=== PATIENT | female | born 1975 | race Asian ===

== ENCOUNTER 2024-11-26 23:14 | Inpatient (IN) | payer OTHER, SELFPAY ==
[2024-11-26] VITALS (31 sets, daily range): BP systolic 135–212; BP diastolic 71–126; PULSE 4–124; BMI 29.5
[2024-11-26 21:41] LABS: Hematocrit 37.1 % (37.0-47.0); Hemoglobin 12.6 g/dL (12.0-16.0); Mean Corp Hgb Conc. 34.0 g/dL (33.0-37.0); Mean Corpuscular Volume 87.7 fL (81.0-99.0); Nucleated Red Blood Cells % 0 %; Platelet Count 245 10^3/uL (130-400); Red Cell Dist. Width 13.7 % (11.5-14.5)
[2024-11-26] MEDS: NITROGLYCERIN PREMIX 250 IV (21:41)
--- NOTE | 2024-11-26 21:50 | ED.GENMED ---
History of Present Illness
General
Chief Complaint: Breathing Problem
Source: patient and family (translating...pt from [facility])
Time Seen by Provider: 11/26/24 21:39
History of Present Illness
History of Present Illness:
49-year-old female presents to the emergency room complaining of severe shortness of breath. Patient began feeling short of breath couple hours prior to arrival. It started with some nausea and vomiting. Patient has end-stage renal disease
related to diabetes. She receives dialysis Wednesday. Her last dialysis was yesterday. However the patient has been receiving dialysis in [place]. She moved here for the foreseeable future today. She has not set up any sort of
medical care or made any arrangements at a dialysis center. Patient has been taking her medications though she does not know what her medications are. She brought a box with tablets but not a list of medication. Family members will call home and
try to figure out her medication list. Patient also complaining of a headache.
Past History
Past History
ED Past Medical History: CAD, HTN, NIDDM and Renal failure
ED Past Surgical History: Cardiac (Bypass surgery performed in [place])
Social History
Tobacco: Non-smoker
Alcohol: None
Drug: None
Phy Exam
Physical Exam
Physical Exam:
General: Awake, Alert, Oriented X3. Moderate respiratory distress
Vitals: Hypoxic on room air, tachypneic, tachycardic, markedly hypertensive
Head: Atraumatic
Eyes: Pupils equal, EOMI
Throat: Airway intact, no exudates
Neck: Trachea midline
Lungs: Crackles bilaterally
Heart: Regular rate, no murmurs
Abd: Soft, Nontender, No pulsatile mass
Neuro: Nonfocal
Skin: Warm, dry, no rash
Extremities: pulses equal b/l, AV fistula noted left forearm
Scores
Heart Failure Risk
Heart Failure Risk Score: Yes
History of Stroke or TIA: No
History of intubation for respiratory distress: No
Heart rate on ED arrival >/= 110: Yes
SaO2 <90% on arrival on room air: Yes
HR >/=110 during 3min walk test (or too ill to perform test): Yes
ECG has acute ischemic changes: No
Urea >/=12mmol/L (BUN 33.6mg/dL): Yes
Serum CO2>/=35mmol/L: No
Troponin I or T elevated to MD Level (0.4mg/dL): No
NT-proBNP >/=5,000ng/L (5,000pg/ml): No
HF Risk Score: 4
Admission Status: HIGH RISK 26.1% Consider SNF treatment or admission to hospital
Course
Orders/Labs/Results
Orders:
Orders
11/26/24 21:21
Electrocardiogram (*1) Urgent
Reason for Study: Shortness of Breath
EKG- Treatment ONCE
11/26/24 21:27
Electrocardiogram (*1) Urgent
Reason for Study: Other
Other Reason for Exam: Respiratory Distress
Cardiac Monitoring- Treatment ONCE
EKG- Treatment ONCE
IV Insert/Care/Rem.- Treatment PRN
CR Chest Portable - 1 View Urgent
Comment:
Reason For Exam: respiratory distress
Reason Study Needs to be Portable: Patient Unstable
O2 Therapy [RESP] Urgent
Titrate/Wean O2 to maintain O2 sat greater than (%): 93
Special Instructions: TO MAINTAIN CONTINUOUS O2 SATS >/= 93%
Pulse Ox/cont/shift [RESP] Urgent
Quantity: 1
Special Instructions: continuous pulse ox
11/26/24 21:36
Complete Blood Count/With Diff Urgent
Comprehensive Metabolic Panel Urgent
Troponin I Urgent
11/26/24 21:37
Nitroglycerin 100 mg/250 ml [Nitroglycerin Premix] 100 mg in 250 ml .ROUTE .STK-MED
11/26/24 21:40
Nitroglycerin 100 mg/250 ml [Nitroglycerin Premix] 100 mg in 250 ml IV NOW
Initial dose in mcg/min, then titrate:: 100
Titrate to keep:: Other
Titrate to keep other:: SBP less than 140 mmHg
Titrate by mcg/min:: 20 mcg/min
Frequency of titrations (minutes):: every 1 minute (after initial bolus)
Additional Titration Instructions:: Bolus 400 mcg/min x 2 min. Decrease to 100 mcg/min & titrate
Maximum dose in mcg/min:: 200
Begin to taper infusion when:: Remained at goal for 2hrs
Taper by mcg/min:: 5 mcg/min
Frequency of taper (minutes) if patient maintains goal:: 30
Taper to off?: Yes
If infusion off & no longer maintaining goal:: Contact Provider
11/26/24 21:47
Venous Blood Gas Urgent
%Oxygen/Room Air: 77
11/26/24 21:59
Acetaminophen 1000MG/100Ml [Ofirmev] 1,000 mg in 100 ml IV ONCE
Acetaminophen IV Indication:: No OK & No Enteral Access
11/26/24 22:13
Calcium Gluconate 1,000 mg IV NOW STA
Dextrose 50%-Water [Dextrose 50% Syringe] 12.5 grams IV [id number] PRN
Dextrose 50%-Water [Dextrose 50% Syringe] 25 grams IV NOW STA
Insulin Human Regular [Novolin R] 10 units IV NOW STA
11/26/24 22:14
Bedside Glucose PRE IV Insulin- HyperK+ NOW
11/26/24 22:36
Furosemide [Lasix] 100 mg IV NOW STA
11/26/24 22:40
Ondansetron Injectable [Zofran] 4 mg .ROUTE .STK-MED ONE
11/26/24 22:43
Admit/Transfer Patient As Directed
Co-Sign Provider:
Level of Care: Inpatient admission
Assign to:: ICU
Physician / Group: Fausto
Diagnosis: Hypoxia; Pulmonary Edema
Reason for Hospitalization: BIPAP
Expected length of stay greater than two midnights?: Yes
ELOS- Estimated Length of Stay in days: 3
I certify the patient meets the requirements for IP care: Yes
Ondansetron Injectable [Zofran] 4 mg IV NOW STA
PRN Pain Medication Management As Directed
May give lesser potent ordered pain med per pt: Yes
preference::
Protocol:: Medication orders for pain may be administered in a
manner that supports deferring to patient preference
when the pt is:
- Requesting an ordered lesser potent pain medication.
Least to most potent pain medications are defined
as: acetaminophen < NSAID < tramadol < opioids
(morphine, oxycodone, hydromorphone).
- Requesting a lesser dose of the same medication IF
ORDERED.
- Requesting a less intrusive route of administration
if both routes are prescribed by the provider (PO <
IV).
11/26/24 22:44
Code Status As Directed
Resuscitation Status: Full Code
11/26/24 23:44
Bedside Glucose POST IV Insulin- HyperK+ Q1HX2,Q2HX2
11/27/24 00:30
Venous Blood Gas Routine
%Oxygen/Room Air: 97% BiPAP
11/27/24 00:44
Potassium Urgent
Comment: draw 2 hours after regular insulin IV administration
11/27/24 01:30
Troponin I Q6H
11/27/24 07:30
Troponin I Q6H
Abnormal Lab Results
11/26/24 11/26/24 11/26/24
21:36 21:47 22:38
WBC 13.0 H 10^3/uL
(4.8-10.8)
Abs Immat Gran (auto) 0.1 H 10^3/uL
(0-0.05)
Absolute Neuts (auto) 7.3 H 10^3/uL
(1.4-6.5)
Absolute Lymphs (auto) 4.5 H 10^3/uL
(1.2-3.4)
VBG pH 7.25 L
(7.32-7.43)
VBG pCO2 62 H mmHg
(35-48)
VBG pO2 65 H mmHg
(30-50)
VBG HCO3 27.2 H mmol/L
(22-27)
Potassium 5.9 H mmol/L
(3.5-5.1)
BUN 69 H mg/dl
(7-17)
Creatinine 9.4 H* mg/dL
(0.6-1.0)
Glucose 206 H mg/dl
(70-99)
Alkaline Phosphatase 175 H U/L
(38-126)
Troponin I 0.219 H* ng/ml
Total Protein 8.5 H g/dl
(6.3-8.2)
POC Glucose 216 H mg/dl
(70-99)
11/26/24 21:36
11/26/24 21:36
Vital Signs
Initial and Last Documented VS:
Initial Vital Signs
Pulse Resp Pulse Ox
122 32 77
11/26/24 21:28 11/26/24 21:28 11/26/24 21:28
Last Documented Vital Signs
Temp Pulse Resp BP Pulse Ox
98 F 108 18 165/95 99
11/26/24 23:01 11/26/24 23:15 11/26/24 23:15 11/26/24 23:15 11/26/24 23:15
MDM/Problems Addressed
Differential Diagnosis Includes:
Hypertensive emergency, flash pulmonary edema, symptomatic anemia, NSTEMI
MDM/Problems Addressed:
Patient presents in respiratory distress. Initially placed on nonrebreather. IV access obtained in the right arm. Patient noted to be significantly hypertensive. Given her history of end-stage renal disease, shortness of breath and hypertension
I suspect she is having flash pulmonary edema from hypertensive emergency. IV nitro initiated at high dose. Patient transition from nonrebreather to BiPAP.
Labs show minimally elevated white blood cell count. VBG shows the presence of a respiratory acidosis. Chemistry show hyperkalemia which is moderate and the expected elevation in BUN and creatinine. Bicarb is actually okay. Troponin is elvated @
0.2 which is likely a nonischemic bump in troponin. Chest x-ray shows pulmonary edema.
Patient had significant improvement in her respiratory status with BiPAP and IV nitro. Nitro drip titrated to blood pressure and ultimately were holding at 90 mics. Patient will be admitted to the ICU. Nephrology informed that the patient will
need dialysis first thing in the morning.
Acute Exacerbation and/or Progression of Chronic Illness: HTN, Kidney disease (End-stage renal disease) and Other
*Radiology
Radiology exam reviewed: preliminary read by ED provider (Pulmonary edema on my review of the patient's chest x-ray)
*Pulse Oximetry
SaO2: 77
Oxygen Mode of Delivery: Room air
Patient hypoxic: yes
*EKG
Interpreted by ED Provider?: Yes
Interpretation: abnormal
Comparison EKG: no comparison EKG present
Heart Rate: 119
Rate: tachycardiac
Rhythm: sinus tachycardia
QRS Pattern: left vent hypertrophy
Ischemia: other (Lateral perhaps mildly peaked T waves)
*Sumo Wrestler Interpretation
Rate: tachycardiac
Interpretation: abnormal
Rhythm: sinus tachycardia
*Critical Care Note
Total Time (30-74mins, 75-104mins- exclusive of procedures): 44 min
comment:
Critical care statement: A total of 44 minutes of critical care time was provided for this patient. This includes management of unstable vital signs, evaluation of the patient at bedside, reviewing the patient's pertinent medical records, discussion
with consultants, review of old EKGs and review of pertinent medical records. This time with separate from time utilized to perform the aforementioned documented procedures
ED Attending Note
-
Portions of this chart may have been created with voice recognition software.� Occasional wrong word or��sound alike� substitutions may have occurred due to the inherent limitations of voice recognition software.
Discharge Plan
Departure
Patient Disposition: Admit
Date of Disposition: 11/26/24
Time of Disposition: 22:22
Admit to: ICU
Presentation/result/management discussed w/ accepting MD/DO: Hospitalist
Condition: Serious
Discharge Problem:
Flash pulmonary edema, Acute hyperkalemia, ESRD (end stage renal disease)
Interventions
Interventions:
*Risk Screen - Suicide Last Done: 11/26/24 21:28
*General Assessment Last Done: 11/26/24 21:28
*Neglect/Abuse Screening Last Done: 11/26/24 21:28
*ED- Fall Risk Assessment Last Done: 11/26/24 22:19
*ED COVID-19 Vaccine History Last Done: 11/26/24 22:19
ED- Cardiac Assessment Last Done: 11/26/24 21:58
ED- Pulmonary Assessment Last Done: 11/26/24 21:58
[2024-11-26 21:53] LABS: Venous Blood Gas B.E. -1.2 mmol/L (-4 to +4); Venous Blood Gas O2 Sat % 89.2 %
[2024-11-26 22:06] LABS: ALT (SGPT) 26 U/L (0-35); AST (SGOT) 24 U/L (14-36); Albumin 4.5 g/dl (3.5-5.0); Alkaline Phosphatase 175 U/L (38-126); Blood Urea Nitrogen 69 mg/dl (7-17); Calcium 8.9 mg/dl (8.4-10.2); Carbon Dioxide 25 mmol/L (22-30); Chloride 100 mmol/L (98-107); Estimated Creatinine Clearance 6 ml/min; Glucose 206 mg/dl (70-99); Potassium 5.9 mmol/L (3.5-5.1); Sodium 137 mmol/L (135-145); Total Protein 8.5 g/dl (6.3-8.2); eGFR 4.64
[2024-11-26] MEDS: OFIRMEV 100 IV (22:06)
[2024-11-26 22:16] LABS: Troponin I 0.219 ng/ml
[2024-11-26] MEDS: CALCIUM GLUCONATE 1000 MG IV (22:35)
--- NOTE | 2024-11-26 22:35 | HPS.HSE ---
Family Physician
-
Family Physician:
Chief Complaint
-
Shortness of Breath
History of Present Illness
Patient is a 49 y/o female past medical history of ESRD on HD, CAD s/p CABG, and diabetes who presents with shortness of breath. Patient is relocating to the area from [place] but not yet set up any continuing medical care. Previously she was
receiving dialysis [facility] with last dialysis on (3 days ago). Shortness of breath started very suddenly today. History is limited due to language barrier.
Medical History
Past Medical History
Past Medical History: Reports Other
Additional Past Medical History:
Coronary Artery Disease s/p CABG
ESRD on HD
Diabetes Mellitus
Essential Hypertension
Hyperlipidemia
Past Surgical History: Reports Other
Additional Past Surgical History:
AV Fistula
CABG
Social History
Tobacco: Non-smoker
Living: With Family
Family History
Family History: Unable to Obtain
Allergies / Home Medications
Allergies reflects when Allergies were last updated in [employer].
Home Medications with original date entered in [employer]
Allergy/Medication List:
Medications on admission are unable to be verified or confirmed at this time.
Patient's niece to bring in medication bottles from home to update list
If medication reconciliation has not been performed, why?: Medication List N/A
Review of Systems
-
Unable to obtain full review of systems at this time due to: Language Barrier
Physical Exam
Vital Signs
Vital Signs
Pulse Resp BP Pulse Ox
106 25 152/97 98
11/26/24 22:20 11/26/24 22:21 11/26/24 22:20 11/26/24 22:21
Physical Exam
General: Well Developed, Well Nourished and Respiratory Distress
HEENT: NormoCephalic, Anicteric, Atraumatic and Oxygen (BIPAP)
Respiratory: Rales and Decreased Breath Sounds (Bilateral bases)
Cardiac: S1/S2, Regular Rhythm and Tachycardia
GI: Soft and Non Tender
Rectal: Deferred by Provider
Musculoskeletal: No Clubbing and No Cyanosis
Skin: Warm and Dry
Neuro: Awake, Alert and No Motor Deficits
Psych: Calm
Laboratory Results
-
11/26/24 21:36
11/26/24 21:36
Laboratory Results
Total Bilirubin 0.5 mg/dl (0.2-1.3) 11/26/24 21:36
AST 24 U/L (14-36) 11/26/24 21:36
ALT 26 U/L (0-35) 11/26/24 21:36
Alkaline Phosphatase 175 U/L (38-126) H 11/26/24 21:36
Troponin I 0.219 ng/ml H* 11/26/24 21:36
Data Reviewed
-
Lab Data: Labs Reviewed by me
Impression/Plan
-
Acute Hypoxic Respiratory Failure secondary to Acute Pulmonary Edema
-Admit to ICU
-Continue BiPAP - Recheck ABG later tonight
-Give dose of Lasix 100mg IV Now
-If patient not improving may require urgent dialysis
Hypertensive Emergency
-Continue nitro drip
-Patient takes metoprolol at home but dose is unknown - Will continue metoprolol tartrate 25mg BID for now
Hyperkalemia
-Patient received insulin plus dextrose in ED
-Recheck potassium later tonight
ESRD on HD
-Consult Nephrology
Diabetes Mellitus
-Check HgbA1c
-Monitor sugars and continue coverage insulin
Coronary Artery Disease s/p CABG
DVT proph: SC Heparin
Code Status: Full Code
[2024-11-26 22:38] LABS: Glucose - Point of Care 216 mg/dl (70-99)
[2024-11-26] MEDS: DEXTROSE 50% SYRINGE 25 GRAMS IV (22:41)
[2024-11-26] MEDS: ZOFRAN 4 MG IV (22:43)
[2024-11-26] MEDS: NOVOLIN R 10 UNITS IV (22:45)
[2024-11-26] MEDS: LASIX 100 MG IV (22:52)
--- NOTE | 2024-11-26 23:26 | W.PN.UPDATE ---
Update Note
Progress Note Update
Patient seen in conjunction with DIPLOMATIC INTERPRETER. I agree with the findings and physical. I concur with his assessment and plan.
Briefly, this is a 49-year-old [id number] female with past medical history of end-stage renal disease, insulin-dependent diabetes, hypertension who presents to the emergency department with extreme shortness of breath and is found to be in
pulmonary edema and hypoxia.
Patient was recently transferred from [place] to [place] and had last dialysis on . She has not established care here and did not go for dialysis today. She started having shortness of breath without chest pain or pressure. She
states come to the emergency department.
Emergency migraine she was hypertensive and had to be placed on nitroglycerin drip in addition to BiPAP for pulmonary edema.
Currently blood pressure is 140/70 with a pulse of 108 and she is satting 90% on BiPAP. Temperature was 98. She had a white count 13 otherwise CBC was unremarkable. Electrolytes notable for a potassium of 5.9 bicarb 25, BUN/creatinine of 69 and
9.4 with a glucose of 206.
Standing chest x-ray shows increased pulmonary vasculature. Troponin was 0.219 with nonischemic ECG.
Blood gas 7.2 consistent with acute respiratory acidosis.
Assessment and plan
Flash pulmonary edema secondary to acute volume overload and hypertension in the setting of missing dialysis. No signs of acute infection. Troponin elevated but ECG nonischemic. Suspect elevated troponin is secondary to ESRD, flash pulmonary
edema and hypoxia.
Hypoxic respiratory distress secondary to flash pulmonary edema
- Admit to ICU
- Continue nitroglycerin titration
- BiPAP, repeat blood gas to titrate
- Trial of Lasix 100 mg IV in ED as patient still makes some urine
- She has a right upper extremity AV fistula, plan for urgent dialysis in a.m., emergent dialysis if patient decompensates overnight
-Fluid restriction
- Nephrology aware
Hyperkalemia to 5.9
- BiPAP to correct acidosis
- Status post insulin dextrose
- Lasix given
- Lokelma if repeat K remains elevated
NIMI - Trop 0.2, no CP, ECG non-ischemic
- continue ntg
- fluid removal and oxygen support
- cycle cardiac enzymes
Diabetes
- Sliding scale insulin for now
- continue her jardiance
DVT PPX - heparin sq
Code status - Full code
[2024-11-26 23:54] LABS: Glucose - Point of Care 241 mg/dl (70-99)
[2024-11-27] VITALS (54 sets, daily range): BP systolic 108–192; BP diastolic 68–160; PULSE 4–78; BMI 29.0
--- NOTE | 2024-11-27 00:15 | PTCARENOTE ---
Rec'd pt from ER via stretcher on bipap & ntg gtt at 70mic; Pt speaks Croatian, niece-Elicia at bedside & assists w/ interpreting, pt denies pain, CHG bath done on adm, PAN, cooperative, SR, ntg gtt - to titrate keeping sbp < 160, weak distal pulses,
+ bruit/ thrill left arm, O2 via bipap 14/6 w/ 6 literso2, lungs decr, sat 99, hypo bowel sounds, no bm, abd obese, soft, no n/v, oliguric, purewick in place
--- NOTE | 2024-11-27 00:45 | PTCARENOTE ---
Tracey Wood NP aware of accu
[2024-11-27] MEDS: HEPARIN 5000 UNITS SC ×2 (00:53→08:19)
[2024-11-27 00:57] LABS: Venous Blood Gas B.E. -0.1 mmol/L (-4 to +4); Venous Blood Gas O2 Sat % 98.0 %
[2024-11-27 01:20] LABS: Potassium 7.0 mmol/L (3.5-5.1)
--- NOTE | 2024-11-27 01:20 | PTCARENOTE ---
Tracey Wood NP aware of k-7
[2024-11-27] MEDS: NOVOLIN R INSULIN INFUSION 100 IV (01:33)
[2024-11-27] MEDS: NOVOLIN R 4 UNITS IV (01:33)
--- NOTE | 2024-11-27 01:40 | PTCARENOTE ---
glycemic protocal started per order
[2024-11-27 01:43] LABS: Glucose - Point of Care 221 mg/dl (70-99)
[2024-11-27 02:42] LABS: Glucose - Point of Care 168 mg/dl (70-99)
[2024-11-27 03:46] LABS: Glucose - Point of Care 150 mg/dl (70-99)
[2024-11-27 03:48] LABS: Hematocrit 30.5 % (37.0-47.0); Hemoglobin 10.5 g/dL (12.0-16.0); Mean Corp Hgb Conc. 34.4 g/dL (33.0-37.0); Mean Corpuscular Volume 86.4 fL (81.0-99.0); Platelet Count 212 10^3/uL (130-400); Red Cell Dist. Width 13.7 % (11.5-14.5)
--- NOTE | 2024-11-27 03:54 | PTCARENOTE ---
sys reviewed, changes noted, resting comf
[2024-11-27 04:00] LABS: APTT 28.9 Sec (23.4-35.0); INR 1.02; PT 13.7 Sec (11.4-14.6)
[2024-11-27 04:17] LABS: Blood Urea Nitrogen 76 mg/dl (7-17); Calcium 8.8 mg/dl (8.4-10.2); Carbon Dioxide 26 mmol/L (22-30); Chloride 102 mmol/L (98-107); Estimated Creatinine Clearance 6 ml/min; Glucose 143 mg/dl (70-99); Magnesium 2.9 mg/dl (1.6-2.3); Potassium 6.9 mmol/L (3.5-5.1); Sodium 136 mmol/L (135-145); eGFR 4.76
--- NOTE | 2024-11-27 04:31 | PTCARENOTE ---
Tracey Wood NP aware of critical K & Creat
[2024-11-27 04:32] LABS: Troponin I 0.622 ng/ml
[2024-11-27 04:41] LABS: Glucose - Point of Care 118 mg/dl (70-99)
[2024-11-27 05:42] LABS: Glucose - Point of Care 114 mg/dl (70-99)
--- NOTE | 2024-11-27 07:46 | PN.DE.MGMTRT ---
Insulin Management
- -
11/27/2024: Diabetes Management Consult
49 year old female with PMH: ESRD on HD, CAD s/p CABG, HTN, HLD and IDDM who presented to the ED with extreme SOB and was found to be in Flash pulmonary edema and hypoxia secondary to acute volume overload and hypertension in the setting of missing
dialysis. Patient recently relocated from [place] to [place] and had last dialysis on . She has not established care here and according to her family, plans on moving back to [place].
Spoke to pt's NieceBreana Rubi who reports that pt was taking Jardiance 10mg daily and insulin twice a day, before breakfast and dinner but she is not sure of the dose and name of insulin. She will be back in the hospital later this afternoon and will
bring the insulin with her.
Pt awake, alert, sitting up in bed on HD, offers no complaints.
Was started on glycemic protocol due to hyperglycemia and remains on protocol at this time. Glucose range 82 to 221, requiring 1.7 to 3 units/hour.
Infusion is currently turned off as of last accuchek of 82.
Discussed with Nurse. Will cont to monitor and start home regimen, once ot has been verified with family
Diabetes History
- -
Type of Diabetes: 2 requiring insulin
Pre-Admission Diabetes Regimen
11/26/24 11/27/24
21:36 03:35
Creatinine 9.4 H* 9.2 H*
Insulin Pump Settings
IP Diabetes Regimen
11/26/24 11/26/24 11/26/24
21:36 22:38 23:53
Glucose 206 H
POC Glucose 216 H 241 H
11/27/24 11/27/24 11/27/24
00:46 02:30 03:35
Glucose 143 H
POC Glucose 221 H 168 H 150 H
11/27/24 11/27/24
04:29 05:31
Glucose
POC Glucose 118 H 114 H
Patient Education
--- NOTE | 2024-11-27 07:48 | CON.INTV ---
Consultation
Consultation Request
Date/Time Consultation Requested: 11/27
Date/Time Consultation Performed: 11/27
Reason for Consultation: Critical care
Medical History
-
History of Present Illness:
History obtained from the patient through an biology faculty member, reviewed hospital records. Attempted to contact family, no answer. 49-year-old female with history of end-stage renal disease on hemodialysis, coronary disease with bypass surgery who
recently moved from [place] to the [facility]. Because of this moved, she apparently missed a dialysis session. She also had some nausea and emesis. She was brought to [facility] because of increased shortness of breath, found to
be tachypneic, tachycardic and hypertensive with pressures 220s/110s. Per ED records, chest exam with bilateral crackles. Patient was given nitroglycerin to help with blood pressure, Tylenol to help with a headache, insulin, Lasix. Patient was
admitted to ICU for further management
Presently, she is feeling much improved. She denies shortness of breath, chest pain. She is complaining of some left arm discomfort at the site of her AV fistula and some shoulder ache. She received Tylenol earlier for headaches.
.
PMH: End-stage renal disease on hemodialysis Wednesday//Wednesday, recently moved from [facility], has yet to set up medical care in the area. Hypertension. Diabetes, history of coronary disease with bypass surgery April 2024
Past Medical History
Past Medical History: None (See above)
Past Surgical History: None (See above)
Social History
Tobacco: Non-smoker
Alcohol: None
Living: With Family
Employment: Not Employed
Family History
Family History: Reviewed & Not Pertinent
Allergies / Home Medications
Allergies
Allergy/AdvReac Type Severity Reaction Status Date / Time
No Known Allergies Allergy Unverified 11/26/24 21:25
Home Medications
�Medication �Instructions �Recorded �Confirmed �Last Taken �Type
Unobtainable 11/26/24 11/26/24 Unknown History
Review of Systems
-
Unable to Obtain full review of systems at this time due to: Language Barrier (Used biology faculty member to ask few questions)
Vitals / Labs / Diagnostic Testing
Vital Signs
Temp Pulse Resp BP Pulse Ox
97.5 F 71 12 144/85 99
11/27/24 07:14 11/27/24 07:00 11/27/24 07:00 11/27/24 07:00 11/27/24 07:00
Lab Data
11/27/24 03:35
11/27/24 03:35
Laboratory Results
11/27/24
03:35
PT 13.7
INR 1.02
APTT 28.9
Diagnostic Testing:
Physical Exam
-
HEENT: Normocephalic, Anicteric and Other (Large neck)
Cardiovascular: S1/S2, Regular Rhythm, Murmur (n), Rub (n) and Peripheral Edema (n)
Respiratory: Wheeze (n), Rales (few), Rhonchi (n) and Non-Labored Respirations
GI: Soft, Non Distended and Non Tender
Neurology: Awake, Alert, No Motor Deficits (Moves extremities, conversant) and Other
Skin: Warm, Good Color and Other (Left upper extremity AV fistula)
General: Comfortable
Assessment
-
49-year-old female with history of end-stage renal disease, diabetes, coronary disease with bypass surgery with recent moved from [facility], missed a session of dialysis because of the movement. Developed increased shortness of breath, found
to be hypertensive and in heart failure with crackles on exam. Patient required nitroglycerin, admitted to ICU for further management 11/26/2024
Acute hypoxic respiratory insufficiency, requiring oxygen therapy
Acute congestive heart failure, suspected diastolic dysfunction/volume overload
Required BiPAP
Elevated troponin
Hypertensive urgency
Requiring nitroglycerin drip
Systolic pressure 220s
Hyperkalemia
Abnormal EKG
Suspected sleep disordered breathing
Hyperglycemia
Conditions present prior to admission
Hypertension
End-stage renal disease on hemodialysis
Diabetes
History of coronary disease, bypass surgery
Plan/recommendations
At this time, patient appears to be comfortable, feels breathing has improved significantly since admission
Currently on room air
Chest x-ray concerning for pulmonary edema
Blood pressure improved, currently 140s/80s
On nitroglycerin drip, being weaned
Elevated troponin noted
Moving forward
Continue with management
Plan hemodialysis
Blood pressure control
Blood sugar control wean off nitroglycerin drip
EKG noted
Hyperkalemia treatment, plan for dialysis today
Suspect etiology is missed dialysis, cannot rule out missed medications
Patient moved to this area, no medical follow-up planned
Reconciled meds with pharmacy
Reinitiate as able
DVT prophylaxis: Heparin therapy
GI prophylaxis: Not indicated
Reviewed with critical care nursing, respiratory care, pharmacy
Reviewed with primary service
TCCT 32 min
[2024-11-27 07:49] LABS: Glucose - Point of Care 82 mg/dl (70-99)
[2024-11-27] MEDS: TYLENOL 650 MG PO ×2 (08:19→15:25)
--- NOTE | 2024-11-27 08:40 | W.PN.HOSP.TC ---
Today's Communication/Plan
-
d/c home
Assessment / Plan
Assessment / Plan
Acute Hypoxic Respiratory Failure secondary to Acute Pulmonary Edema -resolved
-Missed dialysis around explaining volume overload state
-Required BiPAP support and ICU stay
-Give dose of Lasix 100mg IV in ER
ESRD on HD
Missed dialysis
- Patient apparently lives in [place] and came to [place] to move
- Patient did not get any HD over weekend
- Nephrology consulted and patient got urgent round of hemodialysis in the morning today
Hypertensive Emergency
-From dialysis noncompliant
-Continue nitro drip
-Resume home medication om toprol
Hyperkalemia
-Patient received insulin plus dextrose in ED
-got HD for correction
Diabetes Mellitus
-Check HgbA1c
-Monitor sugars and continue coverage insulin
Coronary Artery Disease s/p CABG in May 06
-resumed aspirin/Lipitor
Troponin elevation
- Nonischemic myocardial injury related
DVT proph: SC Heparin
Code Status: Full Code
Patient family requested for patient to be discharged and patient is planned to be traveling back to [place] for continual of regular hemodialysis.
More than 30 minutes spent in discharge including
Final examination of the patient
Summarizing hospital stay
Instructions for continuing care to all relevant caregivers
Preparation of discharge records, prescriptions, and referral forms
Total time spent (in minutes): 39 mins
Anticipated Discharge: Today
Subjective/Interval History
-
Date of Service: November 27, 2024
patient niece is talent acquisition relationship manager for this visit
denies of having sob
not on o2
some bilateral sholder pain
Objective Data
-
Labs:
Laboratory Results
11/26/24 11/27/24 11/27/24
21:36 00:48 03:35
WBC 13.0 H 11.4 H
Hgb 12.6 10.5 L
Hct 37.1 30.5 L
Plt Count 245 212
PT 13.7
INR 1.02
APTT 28.9
Sodium 137 136
Potassium 5.9 H 7.0 H* 6.9 H*
Chloride 100 102
Carbon Dioxide 25 26
BUN 69 H 76 H
Creatinine 9.4 H* 9.2 H*
Glucose 206 H 143 H
Calcium 8.9 8.8
Total Bilirubin 0.5
AST 24
ALT 26
Alkaline Phosphatase 175 H
Vital Signs:
Vital Signs
Temp Pulse Resp BP Pulse Ox
97.5 F 71 12 144/85 99
11/27/24 07:14 11/27/24 07:00 11/27/24 07:00 11/27/24 07:00 11/27/24 07:00
I&O
11/26/24 11/27/24 11/28/24
06:59 06:59 06:59
Intake Total 72.1 / 83.8 11.7 / 11.7
Balance 72.1 / 83.8 11.7 / 11.7
Review of Systems
-
Unable to obtain full review of systems at this time due to: Language Barrier
Physical Exam
-
General: No Apparent Distress and Comfortable
HEENT: Negative Oxygen
Respiratory: Clear to Auscultation
Cardiac: Regular Rhythm and S1/S2; Negative Murmur or Rub
GI: Soft, Nontender and Nondistended
Musculoskeletal: No Edema
Neuro: Awake, Alert, Oriented, No Motor Deficits and Nonfocal/Grossly Intact
Psych: Calm
[2024-11-27 08:45] LABS: Glucose - Point of Care 106 mg/dl (70-99)
[2024-11-27 10:10] LABS: Glucose - Point of Care 166 mg/dl (70-99)
[2024-11-27 10:14] LABS: Glycohemoglobin (HgbA1c) 8.2 % (4.0-5.6)
--- NOTE | 2024-11-27 10:45 | W.CON.NEPH ---
Consultation
-
Date/Time Consultation Requested: November 26, 2024 at 2200
Date/Time Consultation Performed: November 27, 2024 at 9 AM
Requesting Provider: David Lambert
Performing Provider: Dr. Arreola
Reason for Consultation: ESRD and hyperkalemia
Medical History
-
Chief Complaint: ESRD
Past Medical History
Patient is a 49 y/o female past medical history of ESRD on HD, CAD s/p CABG, and diabetes who presents with shortness of breath. Patient is relocating to the area from [place] but not yet set up any continuing medical care. Previously she was
receiving dialysis [facility] with last dialysis on (3 days ago). Shortness of breath started very suddenly today.
History is obtained via niece on telephone and translation
Renal consultation for end-stage renal disease
She has been on dialysis for 1 year in [facility]
She has a left AV fistula. ESRD from hypertension
She is nonoliguric
Presented with hyperkalemia
She has no dialysis unit locally it was a last-minute decision to come to the area staying with her niece she has been having some family issues and therefore came to the area
And plans to stay for at least a few weeks but uncertain to the full duration
Social History
Tobacco: Non-Smoker
Alcohol: None
Allergies / Home Medications
Allergy/AdvReac Type Severity Reaction Status Date / Time
No Known Allergies Allergy Unverified 11/26/24 21:25
�Medication �Instructions �Recorded �Confirmed �Type
Domperidone 10 mg PO TID Gastrointestinal Issue 11/27/24 11/27/24 History
Hyoscine 300 mcg PO Q6HPRN PRN Nausea 11/27/24 11/27/24 History
aspirin 81 mg capsule 81 mg PO DAILY Blood Clot 11/27/24 11/27/24 History
Prevention/Tx
atorvastatin 40 mg tablet 40 mg PO DAILY High Cholesterol 11/27/24 11/27/24 History
calcium carbonate (Oyster Shell 500 mg PO DAILY Supplement 11/27/24 11/27/24 History
Calcium)
empagliflozin 10 mg tablet 10 mg PO DAILY Heart 11/27/24 11/27/24 History
(Jardiance) Disease/Condition
ergocalciferol (vitamin D2) 1,000 2,000 unit PO DAILY Supplement 11/27/24 11/27/24 History
unit capsule
ergocalciferol (vitamin D2) 1,250 1,250 mcg PO QWEEK Supplement 11/27/24 11/27/24 History
mcg (50,000 unit) capsule
furosemide 20 mg tablet 20 mg PO DAILY Fluid 11/27/24 11/27/24 History
Retention/Swelling
hydroxyzine HCl 10 mg tablet 10 mg PO DAILY PRN itching 11/27/24 11/27/24 History
magnesium oxide 400 mg (241.3 mg 400 mg PO DAILY Supplement 11/27/24 11/27/24 History
magnesium) tablet (MagOx)
metoprolol tartrate 50 mg tablet 50 mg PO BID Heart 11/27/24 11/27/24 History
Disease/Condition
prazosin 5 mg capsule 5 mg PO TID Blood Pressure 11/27/24 11/27/24 History
vitamin B complex 1 cap PO DAILY Supplement 11/27/24 11/27/24 History
Review of Systems
-
Mild shortness of breath no chest pain no nausea or vomiting
All other systems: Negative unless noted
Physical Exam
Vital Signs
Vital Signs
Temp Pulse Resp BP Pulse Ox
97.5 F 71 12 144/85 99
11/27/24 07:14 11/27/24 07:00 11/27/24 07:00 11/27/24 07:00 11/27/24 07:00
Lab Results
WBC 11.4 10^3/uL (4.8-10.8) H 11/27/24 03:35
RBC 3.53 10^6/uL (4.20-5.40) L 11/27/24 03:35
Hgb 10.5 g/dL (12.0-16.0) L 11/27/24 03:35
Hct 30.5 % (37.0-47.0) L 11/27/24 03:35
Plt Count 212 10^3/uL (130-400) 11/27/24 03:35
Sodium 136 mmol/L (135-145) 11/27/24 03:35
Potassium 6.9 mmol/L (3.5-5.1) H* 11/27/24 03:35
Chloride 102 mmol/L (98-107) 11/27/24 03:35
Carbon Dioxide 26 mmol/L (22-30) 11/27/24 03:35
BUN 76 mg/dl (7-17) H 11/27/24 03:35
Creatinine 9.2 mg/dL (0.6-1.0) H* 11/27/24 03:35
eGFR 4.76 11/27/24 03:35
Glucose 143 mg/dl (70-99) H 11/27/24 03:35
Calcium 8.8 mg/dl (8.4-10.2) 11/27/24 03:35
Phosphorus 5.0 mg/dl (2.5-4.5) H 11/27/24 03:35
Flb-R-Dcdxvsbxwkj Pept Cancelled 11/26/24 21:27
Albumin 4.5 g/dl (3.5-5.0) 11/26/24 21:36
Physical Exam
General no acute distress
HEENT no cephalic atraumatic extraocular muscle intact no scleral icterus no JVD neck supple
lungs clear to auscultation bilateral
heart regular S1-S2 positive
abdomen soft nontender positive bowel sounds
extremities no edema pulses present bilateral
Neurologically nonfocal alert and oriented x 3
Skin no lesions no abrasions no petechiae
Psych normal affect no bizarre behavior
Data Reviewed
-
Radiology: Image Personally Visualized and interpreted
Labs: Labs Reviewed by me, Discussed with Nurse, Discussed with Patient and Discussed with Family
Assessment/Plan
-
Patient is a 49 y/o female past medical history of ESRD on HD, CAD s/p CABG, and diabetes who presents with shortness of breath. Patient is relocating to the area from [place] but not yet set up any continuing medical care. Previously she was
receiving dialysis [facility] with last dialysis on (3 days ago). Shortness of breath started very suddenly today.
History is obtained via niece on telephone and translation
Renal consultation for end-stage renal disease
She has been on dialysis for 1 year in [facility]
She has a left AV fistula. ESRD from hypertension
She is nonoliguric
Presented with hyperkalemia
She has no dialysis unit locally it was a last-minute decision to come to the area staying with her niece she has been having some family issues and therefore came to the area
And plans to stay for at least a few weeks but uncertain to the full duration
Impression
ESRD
Anemia of CKD
Diabetes
Hypertension
Hyperkalemia
Status post CABG April 2024
Plan
Dialysis today
2 potassium bath
3 and half hours
Ultrafiltration 2 to 3 L
Next dialysis plan will be Wednesday

31 minutes critical care time
--- NOTE | 2024-11-27 10:49 | W.PN.NEPH.HD ---
Progress Note - Hemodialysis
-
Date of Service: November 27, 2024
Duration: 30 minutes and 3 hours
Potassium Bath: 2
Calcium Bath: 2.5
Opti-Dialyzer: 160
Ultrafiltration: Other
Blood Flow: 350
Dialysate Flow: 600
EPO: No
[2024-11-27 11:17] LABS: Glucose - Point of Care 136 mg/dl (70-99)
[2024-11-27 12:13] LABS: Glucose - Point of Care 125 mg/dl (70-99)
[2024-11-27] MEDS: LOW STRENGTH ASPIRIN 81 MG PO (12:46)
--- NOTE | 2024-11-27 12:49 | PTCARENOTE ---
Pt completed HD, ntg off prior to finishing. Pt remains off insulin gtt. Medications brought in by niece but she also reports pt on insulin which was not brought in. Diabetes coke crusher operator, Abhay spoke with Elicia who plans on bringing in medication so
dose/type can be confirmed.
[2024-11-27 12:50] LABS: Potassium 3.6 mmol/L (3.5-5.1)
[2024-11-27 13:05] LABS: Troponin I 0.623 ng/ml
--- NOTE | 2024-11-27 13:37 | PTCARENOTE ---
Pt has been approved for discharge, pending insulin being brought in by fran Rubi to complete the home medication list
[2024-11-27 14:10] LABS: Glucose - Point of Care 124 mg/dl (70-99)
[2024-11-27] MEDS: MINIPRESS 5 MG PO (15:25)
--- NOTE | 2024-11-27 15:58 | W.DCSUMMARY ---
Discharge Summary
Discharge Data
Date of Admission: 11/26/24
Date of Discharge: 11/27/24
-
Pending Results: No
Hospital Course
Discharging Physician : Dr Garcia Anthony
Disposition : To home
Primary care physician : Unknown
Principal Discharge diagnosis :
Missed hemodialysis
Acute hypoxic respiratory failure
Acute pulmonary edema
Hypertensive urgency
Chronic Discharge diagnosis :
End-stage renal disease on hemodialysis
Obesity
Insulin-dependent diabetes mellitus
Hyperlipidemia
Coronary disease with history of bypass in May 06
Depression/anxiety
Hospital Course :
Patient is a 49-year-old Yi speaking female brought in by family after patient was started having new onset shortness of breath. Open patient lives in [place], [place] and moved to [place] last week. Patient have history of end-stage
renal disease on hemodialysis and had last dialysis around on last week. Over weekend patient started noticing shortness of breath patient came into ER for further evaluation. Patient was noted to be hypertensive/volume overloaded with
x-ray showing pulmonary edema. Patient required to be placed on BiPAP and nitro drip. Patient was admitted to ICU. There was other metabolic derangements including hyperkalemia and nephrology was consulted. Patient underwent an emergent
hemodialysis around. Post hemodialysis it was discussed with family that patient will require dialysis chair time arrangement although family preferred for patient to go back to [place] and requested patient to be discharged. Patient son drove
from [place] to come potato picker patient from hospital.
Important imaging findings :
None
Procedure findings :
None
Discharge Plan
-
Patient Disposition: Home (Routine Discharge)
Discharge Diagnosis/Procedures: Missed Hemodialysis
Condition: Fair
Diet: Diabetic, Carb Controlled
Activity: As tolerated
Driving Restrictions: No driving
Bathing Restrictions: OK to Shower
Referrals:
NONE,* [Family Provider, Internal Medicine]
Prescriptions:
Continued
atorvastatin 40 mg Tablet
40 mg PO DAILY
prazosin 5 mg Capsule
5 mg PO TID
magnesium oxide [MagOx] 400 mg (241.3 mg magnesium) Tablet
400 mg PO DAILY
calcium carbonate [Oyster Shell Calcium] 500 mg calcium (1,250 mg) Tablet
500 mg PO DAILY
metoprolol tartrate 50 mg Tablet
50 mg PO BID
furosemide 20 mg Tablet
20 mg PO DAILY
ergocalciferol (vitamin D2) 1,250 mcg (50,000 unit) Capsule
1,250 mcg PO QWEEK
hydroxyzine HCl 10 mg Tablet
10 mg PO DAILY PRN (Reason: itching)
vitamin B complex Capsule
1 cap PO DAILY
ergocalciferol (vitamin D2) 1,000 unit Capsule
2,000 unit PO DAILY
Jardiance 10 mg Tablet
10 mg PO DAILY
aspirin 81 mg Capsule
81 mg PO DAILY
Domperidone 10 mg tablet
10 mg PO TID
Hyoscine 300 mcg tablet
300 mcg PO Q6HPRN PRN (Reason: Nausea)
insulin aspart U-100 100 unit/mL (3 mL) Insulin Pen
10 unit SC TID
insulin degludec 100 unit/mL (3 mL) Insulin Pen
12 unit SC HS
Ozempic 1 mg/dose (4 mg/3 mL) Pen Injector
1 mg SC SA
Discharge Orders:
Discharge Patient (As Directed); Ordered 11/27/24
Ordered By: Garcia Anthony
Discharge Date and Time
Print Language: VINCENTIAN
--- NOTE | 2024-11-27 16:48 | CM ---
Patient has been medically cleared for discharge. Family is transporting back to [place] where her medical providers and HD clinic are. Discharge to home with family with no additional skilled needs.
== END 2024-11-27 16:28 | disposition home or self-care (01) | DRG 291 ==
LOC: ICU 23:14
PROVIDERS: Internal Medicine; Nurse Practitioner Family; Physician Assistant Medical; ADMITTING PHYSICIAN Internal Medicine; ATTENDING PHYSICIAN Hospitalist; EMERGENCY PHYSICIAN Emergency Medicine; OTHER PHYSICIAN Internal Medicine Critical Care Medicine; OTHER PHYSICIAN Internal Medicine Nephrology
PROC: 5A09357 Assistance with Respiratory Ventilation, Less than 24 Consecutive Hours, Continuous Positive Airway Pressure (ICD-10-PCS; 2024-11-26)
PROC: 5A1D70Z Performance of Urinary Filtration, Intermittent, Less than 6 Hours Per Day (ICD-10-PCS; 2024-11-27)
DX: I13.2 Hypertensive heart and chronic kidney disease with heart failure and with stage 5 chronic kidney disease, or end stage renal disease (principal); I50.31 Acute diastolic (congestive) heart failure; J96.01 Acute respiratory failure with hypoxia; N18.6 End stage renal disease; I16.1 Hypertensive emergency; E87.20 Acidosis, unspecified; I5A Non-ischemic myocardial injury (non-traumatic); E11.22 Type 2 diabetes mellitus with diabetic chronic kidney disease; D63.1 Anemia in chronic kidney disease; E11.65 Type 2 diabetes mellitus with hyperglycemia; E66.9 Obesity, unspecified; E78.5 Hyperlipidemia, unspecified; F32.A Depression, unspecified; F41.9 Anxiety disorder, unspecified; I25.10 Atherosclerotic heart disease of native coronary artery without angina pectoris; E87.5 Hyperkalemia; Z60.3 Acculturation difficulty; Z91.158 Patient's noncompliance with renal dialysis for other reason; Z99.2 Dependence on renal dialysis; Z95.1 Presence of aortocoronary bypass graft; Z79.82 Long term (current) use of aspirin; Z79.84 Long term (current) use of oral hypoglycemic drugs; Z68.29 Body mass index [BMI] 29.0-29.9, adult
CPT/HCPCS: 71045; 80048; 80053; 82805; 82962; 83036; 83735; 84100; 84132; 84484; 85025; 85027; 85610; 85730; 87070; 93005; 94660; 96374; 96375; 99291